=== PATIENT | male | born 1995 | race Caucasian/White ===

== ENCOUNTER 2017-04-17 01:09 | Emergency (ER) | payer OTHER ==
[~2017-04-17] VITALS: Ht 170.2 cm; Wt 77.1 kg
[~2017-04-17 01:09] MED LIST: NOHOMEMEDICATIONS
[2017-04-17 01:35] LABS: ABSOLUTE BASOPHILS 0.1 thou/uL (0.0-0.2); ABSOLUTE EOSINOPHILS 0.2 thou/uL (0.0-0.7); ABSOLUTE LYMPHOCYTES 1.7 thou/uL (0.8-5.3); ABSOLUTE MONOCYTES 0.5 thou/uL (0.0-1.2); ABSOLUTE NEUTROPHILS 3.9 thou/uL (1.6-8.1); BASOPHILS 1.2 %; HEMATOCRIT 46.4 % (42.0-52.0); HEMOGLOBIN 16.4 gm/dL (14.0-18.0); LYMPHOCYTES 27.1 %; MCHC 35.3 g/dL (28.0-37.0); MCV 99.2 fL (80.0-100.0); MPV 8.1 fl. (7.2-11.1); NUCLEATED RBCS 0 /100WBC; PLATELET COUNT* 170 thou/uL (150-400); POLYS 60.7 %; RBC 4.68 mil/uL (4.50-6.00); WBC 6.4 thou/uL (4.0-11.0)
[2017-04-17 01:41] LABS: CALCIUM 8.8 mg/dL (8.5-10.1); CREATININE 0.8 mg/dL (0.6-1.3); POTASSIUM 3.2 mmol/L (3.5-5.1)
[2017-04-17 01:46] LABS: ALBUMIN 4.1 g/dL (3.4-5.0); TOTAL BILIRUBIN 0.3 mg/dL (<0.1-1.0); TOTAL PROTEIN 7.6 g/dL (6.4-8.2)
[2017-04-17 01:56] LABS: ACETAMINOPHEN < 2 ug/mL (10-30)
[2017-04-17 01:57] LABS: ALCOHOL 482 mg/dL (<10)
[2017-04-17 10:36] VITALS: BP 106/68
== END 2017-04-17 10:37 | disposition home or self-care (01) ==
LOC: M.ERS 01:09
PROVIDERS: Family Medicine
DX: F10.120 Alcohol abuse with intoxication, uncomplicated (principal)